=== PATIENT | male | born 1950 | race Caucasian/White ===

== ENCOUNTER 2018-01-09 08:25 | Inpatient (IN) | payer MEDICARE ==
[2018-01-06 16:22] LABS: BASOPHILS % (AUTO) 0.3 % (0-1); EOSINOPHILS # (AUTO) 0.1 X10'3 (0-0.9); EOSINOPHILS % (AUTO) 3.4 % (0-6); LYMPHOCYTES # (AUTO) 0.9 X10'3 (1.1-4.8); LYMPHOCYTES % (AUTO) 22.5 % (21-51); MEAN CORPUSCULAR HEMOGLOBIN 29.7 PG (27.0-31.0); MEAN CORPUSCULAR HGB CONC 32.9 % (33.0-36.5); MEAN CORPUSCULAR VOLUME 90.3 FL (78-98); MEAN PLATELET VOLUME 9.4 FL (7.4-10.4); MONOCYTES # (AUTO) 0.4 X10'3 (0-0.9); NEUTROPHILS # (AUTO) 2.5 X10'3 (1.8-7.7); NEUTROPHILS % (AUTO) 64.8 % (42-75); PRE OP HEMATOCRIT 40.4 % (42.0-52.0); PRE OP HEMOGLOBIN 13.3 g/dL (14.0-17.9); PRE OP PLATELET COUNT 126 X10'3 (140-440); RED BLOOD COUNT 4.47 X10'6 (4.70-6.10); RED CELL DISTRIBUTION WIDTH 15.4 % (11.5-14.5)
[2018-01-06 16:36] LABS: ALBUMIN 3.9 G/DL (3.4-5.0); ALBUMIN/GLOBULIN RATIO 1.3 (1.1-1.5); ALKALINE PHOSPHATASE 124 IU/L (46-116); BLOOD UREA NITROGEN 23 MG/DL (7-18); BUN/CREATININE RATIO 18.7 (5.4-32.0); CALCIUM 8.6 MG/DL (8.5-10.1); CHLORIDE 105 MMOL/L (99-107); CREATININE 1.23 MG/DL (0.60-1.10); PRE OP ALT 24 U/L (30-65); PRE OP ANION GAP 6 (8-16); PRE OP AST 35 U/L (10-37); PRE OP BILIRUB, TOTAL 0.5 MG/DL (0.0-1.0); PRE OP GLUCOSE 94 MG/DL (70-104); PRE OP POTASSIUM 4.3 MMOL/L (3.4-5.1); PRE OP SODIUM 145 MMOL/L (135-145); TOTAL CARBON DIOXIDE 34.5 MMOL/L (24-32); TOTAL PROTEIN 6.9 G/DL (6.4-8.2); eGFR 58 ML/MIN
[~2018-01-09] VITALS: Ht 182.9 cm; Wt 71.2 kg
[2018-01-09] VITALS (19 sets, daily range): BP systolic 122–163; BP diastolic 27–94
[~2018-01-09 08:25] MED LIST: AMIO200T57 PO; AMLO10TA PO; ATEN25TA PO; ATOR40TA PO; BUTA-281 PO; DOCUMENT DATE & TIME OF BETA-BLOCKER PO ONE; FENT-92 TD; GABA-532 PO; LEVO150T8 PO; OXYC-580 PO; ceFAZolin inj. 2,000 MG in normal saline 100ml IV soln 100 ML IV ONE; famotidine 20mg tablet PO ONE; ringers solution, lacted 1,000 ML IV SCH; vancomycin inj 1,500 MG in normal saline 300ml IV soln IV ONE
[2018-01-09] MEDS ORDERED: TRANEXAMIC ACID IV ONE ×4 (11:50)
[2018-01-09] MEDS ORDERED: NORMAL SALINE IV ONE ×4 (11:50)
[2018-01-09] MEDS ORDERED: fentaNYL/PF 50MCG/1 ML 2ML syringe ONE (12:01)
[2018-01-09] MEDS ORDERED: midazolam 2 mg/2 ml injection ONE ×2 (12:01)
[2018-01-09] MEDS ORDERED: LIDOcaine 2% (20mg/ml) 5ml vial ONE (12:02)
[2018-01-09] MEDS ORDERED: propofol inj 20 ML IV ONE (12:02)
[2018-01-09] MEDS ORDERED: ROPIVAcaine 0.5% (5mg/ml) 30ml vial ONE (12:02)
[2018-01-09] MEDS ORDERED: sevoflurane 250ml liquid IH ONE (12:08)
[2018-01-09] MEDS ORDERED: ketorolac trometh. 30mg/ml inj. IM ONE (13:15)
[2018-01-09] MEDS ORDERED: ROPIVAcaine 0.5% (5mg/ml) 30ml vial IJ ONE (13:16)
[2018-01-09] MEDS ORDERED: ringers solution, lacted 1,000 ML IV SCH (13:40)
[2018-01-09] MEDS ORDERED: morphine 4 MG/ML inj SYRINge IV PRN ×2 (13:40)
[2018-01-09] MEDS ORDERED: ondansetron/PF 4mg/2ml inj IV PRN ×2 (13:40→14:35)
[2018-01-09] MEDS ORDERED: meperidine/PF 25mg/ml syringe IV PRN ×3 (13:40)
[2018-01-09] MEDS ORDERED: proCHLORperazine 10 MG/2 ml inj IV PRN (13:40)
[2018-01-09] MEDS ORDERED: glycopyrrolate 0.2mg/ml inj ONE (14:06)
[2018-01-09] MEDS ORDERED: atropine 0.4 mg/ml 20ml vial ONE (14:06)
[2018-01-09] MEDS ORDERED: ondansetron/PF 4mg/2ml inj ONE (14:06)
[2018-01-09] MEDS ORDERED: HYDROmorphone inj. 0.5 MG/0.5 ML DISP.SYRIN IV PRN ×2 (14:35)
[2018-01-09] MEDS ORDERED: diphenhydrAMINE 25mg capsule PO PRN ×2 (14:35)
[2018-01-09] MEDS ORDERED: oxyCODONE IR 5mg (immed. release) tablet PO PRN ×2 (14:35)
[2018-01-09] MEDS ORDERED: acetaminophen 325mg tablet PO PRN (14:35)
[2018-01-09] MEDS ORDERED: magnesium hydroxide 30ml (MOM) UD suspension PO PRN (14:35)
[2018-01-09] MEDS ORDERED: bisacodyl 10mg suppository rectal RC PRN (14:35)
[2018-01-09] MEDS ORDERED: tranexamic acid inj. 710 MG in normal saline 100ml IV soln 100 ML IV ONE (17:30)
[2018-01-09] MEDS: ceFAZolin 1GM/D5W- ADD-VANTAGE 50 ML IV SCH ×2 (17:47→23:45)
[2018-01-09] MEDS: potassium cl 20mEq in 1/2 NS 1,000 ML IV SCH ×2 (17:49→22:32)
[2018-01-09] MEDS: oxyCODONE IR 5mg (immed. release) tablet PO SCH ×2 (17:54→20:51)
[2018-01-09] MEDS ORDERED: vancomycin/NS 1 GM ADD-VANTAGE 250 ML IV SCH (20:00)
[2018-01-09] MEDS: ketorolac tromethamine 15mg/ml inj. IV SCH (20:50)
[2018-01-09] MEDS: acetaminophen 325mg tablet PO SCH (20:52)
[2018-01-09] MEDS ORDERED: sennosides 8.6mg tablet PO SCH (21:00)
[2018-01-09] MEDS ORDERED: gabapentin 300mg capsule PO SCH ×2 (21:00)
[2018-01-10] MEDS: ketorolac tromethamine 15mg/ml inj. IV SCH ×2 (01:29→08:17)
[2018-01-10] MEDS: acetaminophen 325mg tablet PO SCH ×2 (01:31→08:16)
[2018-01-10 02:00] VITALS: BP 135/69
[2018-01-10 06:00] VITALS: BP 114/68
[2018-01-10] MEDS ORDERED: levoTHYROXINE 75mcg tablet PO SCH (07:00)
[2018-01-10 07:11] LABS: BASOPHILS % (AUTO) 0.3 % (0-1); EOSINOPHILS % (AUTO) 0 % (0-6); HEMATOCRIT 31.1 % (42.0-52.0); HEMOGLOBIN 10.3 g/dl (14.0-17.9); LYMPHOCYTES # (AUTO) 0.5 X10'3 (1.1-4.8); LYMPHOCYTES % (AUTO) 11.5 % (21-51); MEAN CORPUSCULAR HEMOGLOBIN 29.9 PG (27.0-31.0); MEAN CORPUSCULAR HGB CONC 33.1 % (33.0-36.5); MEAN CORPUSCULAR VOLUME 90.4 FL (78-98); MEAN PLATELET VOLUME 10.5 FL (7.4-10.4); MONOCYTES # (AUTO) 0.4 X10'3 (0-0.9); MONOCYTES % (AUTO) 9.2 % (2-12); NEUTROPHILS # (AUTO) 3.4 X10'3 (1.8-7.7); PLATELET COUNT 86 X10'3 (140-440); RED BLOOD COUNT 3.45 X10'6 (4.70-6.10); RED CELL DISTRIBUTION WIDTH 15.1 % (11.5-14.5); WHITE BLOOD COUNT 4.3 X10'3 (4.5-11.0)
[2018-01-10] MEDS ORDERED: gabapentin 300mg capsule PO SCH (07:30)
[2018-01-10] MEDS ORDERED: amLODIPine 5mg tablet PO SCH (08:00)
[2018-01-10] MEDS ORDERED: atenolol 25mg tablet PO SCH (08:00)
[2018-01-10] MEDS ORDERED: atorvastatin 20mg tablet PO SCH (08:00)
[2018-01-10 08:09] LABS: ANION GAP 10 (8-16); CHLORIDE 107 MMOL/L (99-107); POTASSIUM 4.3 MMOL/L (3.5-5.1); SODIUM 144 MMOL/L (135-145); TOTAL CARBON DIOXIDE 27.5 MMOL/L (24-32)
[2018-01-10] MEDS: oxyCODONE IR 5mg (immed. release) tablet PO SCH (08:15)
[2018-01-10] MEDS ORDERED: aspirin 325mg tablet PO SCH (08:30)
[2018-01-10] MEDS ORDERED: ASPI-1264 PO (10:18)
[2018-01-10] MEDS ORDERED: celeCOXIB 100mg capsule PO SCH (20:00)
[2018-01-11] MEDS ORDERED: fentaNYL 75 MCG/hour patch.TD72 TD SCH (08:00)
== END 2018-01-10 11:35 | disposition home or self-care (01) | DRG 483 ==
LOC: PAS IN 08:25 → EDSTATUS 13:45 → ORTHO 4S 16:46
PROVIDERS: ADMIT Orthopaedic Surgery; ATTEND Orthopaedic Surgery
PROC: 0LS30ZZ Reposition Right Upper Arm Tendon, Open Approach (ICD-10-PCS; 2018-01-09)
PROC: 3E0T3BZ Introduction of Anesthetic Agent into Peripheral Nerves and Plexi, Percutaneous Approach (ICD-10-PCS; 2018-01-09)
PROC: 0RRJ00Z Replacement of Right Shoulder Joint with Reverse Ball and Socket Synthetic Substitute, Open Approach (ICD-10-PCS; principal; 2018-01-09 12:08)
DX: M19.011 Primary osteoarthritis, right shoulder (principal); G62.9 Polyneuropathy, unspecified; I48.91 Unspecified atrial fibrillation; E03.9 Hypothyroidism, unspecified; D50.0 Iron deficiency anemia secondary to blood loss (chronic); E78.5 Hyperlipidemia, unspecified; Z96.612 Presence of left artificial shoulder joint; M75.121 Complete rotator cuff tear or rupture of right shoulder, not specified as traumatic; I10 Essential (primary) hypertension; Z79.82 Long term (current) use of aspirin; Z79.899 Other long term (current) drug therapy; Z82.49 Family history of ischemic heart disease and other diseases of the circulatory system
CPT/HCPCS: 36415; 80051; 80053; 85025; 87070; A4565; A7000; J0461; J0690; J1885; J2001; J2250; J2405; J2704; J2795; J3010; J3370; J3490; J7030; J7040; J7120